=== PATIENT | male | born 1990 | race Asian ===

== ENCOUNTER 2024-08-27 05:43 | Day surgery (SDC) | payer BC ==
[2024-08-26 13:12] VITALS: BMI 27.0
[2024-08-27] MEDS ORDERED: Rocuronium Bromide 10 MG/ML (10ML VIAL) ONE (06:45)
[2024-08-27] MEDS ORDERED: Ondansetron PF 4 MG/2 ML Vial ONE (06:45)
[2024-08-27] MEDS ORDERED: Lidocaine 1% PF 5 ML VIAL ONE (06:45)
[2024-08-27] MEDS ORDERED: Dexamethasone 4 mg/ml Vial ONE (06:45)
[2024-08-27] MEDS ORDERED: PROPOFOL 40 ML ONE (06:45)
[2024-08-27] MEDS ORDERED: SUGAMMADEX SODIUM 200 MG/2 ML VIAL ONE (06:45)
[2024-08-27] MEDS ORDERED: fentaNYL 50 mcg/mL 1 mL Vial ONE (06:46)
[2024-08-27] MEDS ORDERED: Midazolam HCl 2 mg/2 ml Vial ONE (07:19)
[2024-08-27] MEDS ORDERED: AFRIN NASAL MIST 15 ML BOT ONE (07:20)
[2024-08-27] MEDS ORDERED: Lidocaine 1% (PF) 30 ML VIAL ONE (07:20)
[2024-08-27] MEDS ORDERED: Mupirocin 2% Ointment 22 GM Tube ONE (07:43)
[2024-08-27] MEDS ORDERED: Lidocaine 4% PF 5 ML AMP ONE (08:00)
[2024-08-27] MEDS ORDERED: HYDROcodone/Acetaminophen 5/325 mg Tablet ONE (09:33)
== END 2024-08-27 10:05 | disposition home or self-care (01) ==
LOC: CSHSDC 05:43
PROVIDERS: ATTEND Otolaryngology Plastic Surgery within the Head & Neck
PROC: 09BL7ZZ Excision of Nasal Turbinate, Via Natural or Artificial Opening (ICD-10-PCS; principal; 2024-08-27)
PROC: 09RM07Z Replacement of Nasal Septum with Autologous Tissue Substitute, Open Approach (ICD-10-PCS; principal; 2024-08-27)
DX: J34.2 Deviated nasal septum (principal); J34.3 Hypertrophy of nasal turbinates; J45.909 Unspecified asthma, uncomplicated; Z91.018 Allergy to other foods
CPT/HCPCS: J1100; J2250; J2405; J2704; J3010

== ENCOUNTER 2024-09-18 07:05 | Observation (INO) | payer BC ==
[2024-09-18] MEDS ORDERED: fentaNYL 50 mcg/mL 1 mL Vial ONE ×2 (07:21→09:17)
[2024-09-18] MEDS ORDERED: SUCCINYLCHOLINE/SOD CL,ISO/PF 200 MG/10 ML SYRINGE FS ONE (07:21)
[2024-09-18] MEDS ORDERED: Rocuronium Bromide 10 MG/ML (10ML VIAL) ONE (07:21)
[2024-09-18] MEDS ORDERED: Lidocaine 1% PF 5 ML VIAL ONE (07:21)
[2024-09-18] MEDS ORDERED: PROPOFOL 20 ML ONE (07:21)
[2024-09-18] MEDS ORDERED: Tranexamic Acid 1,000 MG/10 ML VIAL ONE (07:26)
[2024-09-18] MEDS ORDERED: Sodium Chloride 0.9% 10 ML ONE (07:26)
[2024-09-18] MEDS ORDERED: Acetaminophen 325 MG TAB PO PRN (07:36)
[2024-09-18] MEDS ORDERED: Ondansetron PF 4 MG/2 ML Vial IVP PRN (07:36)
[2024-09-18 07:37] LABS: #Basophils 0.04 10x3/uL (0.0-0.2); #Eosinophils 0.18 10x3/uL (0.0-0.5); #Monocytes 0.67 10x3/uL (0.0-1.1); #Neutrophils 7.92 10x3/uL (1.5-8.4); %Basophils 0.4 % (0.0-2.0); %Eosinophils 1.7 % (0.0-6.0); %Monocytes 6.5 % (0.0-10.0); Hematocrit 35.1 % (38.8-50.0); Hemoglobin 12.7 g/dL (13.5-17.5); Mean Corpuscular HGB CONC 36.2 g/dL (32.0-36.0); Mean Corpuscular Hemoglobin 30.6 pg (27.0-33.0); Mean Corpuscular Volume 84.6 fL (81.2-95.1); Mean Platelet Volume 9.1 fL (7.4-10.4); Platelet Count 264 10x3/uL (150-450); RBC Distribution Width 12.2 % (11.5-14.5); Red Blood Cell (RBC) Count 4.15 10x6/uL (4.32-5.72); White Blood Cell (WBC) Count 10.3 10x3/uL (3.5-10.5)
[2024-09-18] MEDS: D5 1/2 NS 1,000 ML IV SCH (07:45)
[2024-09-18] MEDS ORDERED: Dexamethasone 20 MG/5 ML VIAL ONE (07:49)
[2024-09-18] MEDS ORDERED: Ondansetron PF 4 MG/2 ML Vial ONE ×2 (07:49→08:52)
[2024-09-18] MEDS ORDERED: HYDROcodone/Acetaminophen 5/325 mg Tablet ONE (10:40)
[2024-09-18] MEDS: CEFAZOLIN 1 GM in Sodium Chloride 0.9% 100 ML IVPB SCH (15:07)
[2024-09-18] MEDS: Acetaminophen/Codeine 30-300mg Tablet PO PRN (15:09)
[2024-09-18] MEDS: FLU (Fluarix Triv) TS24-25(6MOS UP)/PF 45 MCG/0.5 ML Syringe IM ONE (16:00)
[2024-09-19] MEDS: Dexamethasone 20 MG/5 ML VIAL SLOW IVP SCH (05:19)
[2024-09-19 08:29] VITALS: BP 115/60; TEMP 97.8
== END 2024-09-19 10:45 | disposition home or self-care (01) ==
LOC: CSHERS 07:05 → CSHERHOLD 07:36 → CSHTELE 16:17
PROVIDERS: ADMIT Otolaryngology Plastic Surgery within the Head & Neck; ATTEND Otolaryngology Plastic Surgery within the Head & Neck
PROC: 093K8ZZ Control Bleeding in Nasal Mucosa and Soft Tissue, Via Natural or Artificial Opening Endoscopic (ICD-10-PCS; principal; 2024-09-18)
DX: R04.0 Epistaxis (principal); J45.909 Unspecified asthma, uncomplicated; M19.90 Unspecified osteoarthritis, unspecified site; Z98.890 Other specified postprocedural states; Z91.018 Allergy to other foods; Z79.2 Long term (current) use of antibiotics
CPT/HCPCS: 85025; 94762; C1751; C1889; J0690; J1100; J2405; J2704; J3010; J7042